=== PATIENT | male | born 1955 | race African-American/Black ===

== ENCOUNTER 2022-04-29 09:37 | Emergency (ER) | payer MEDICARE, SELFPAY ==
--- NOTE | ~2022-04-29 | XR_ITS ---
EXAMINATION: XR chest 2V DATE: 04/29/2022 10:42 INDICATION: Shortness of breath. TECHNIQUE: Frontal and lateral views of the chest were obtained. COMPARISON: None. FINDINGS: The chest demonstrates clear lungs without pneumonia, pleural effusion, or pneumothorax. Th e heart size is normal. IMPRESSION: 1. No acute cardiopulmonary disease. Reviewed, dictated and finalized at location A.
[2022-04-29 09:47] VITALS: BP 135/60; PULSE 63; RESP 18; TEMP 36.6; O2SAT 100
--- NOTE | 2022-04-29 09:53 | ECG_ITS ---
Measurements Intervals [place] Rate: 59 P: 61 IN: 176 QRS: -20 QRSD: 92 T: 16 QT: 436 QTc: 432 Interpretive Statements SINUS BRADYCARDIA VOLTAGE CRITERIA FOR LVH [MEETS CRITERIA IN ONE OF: R(aVL), S(V1), R(V5), R(V5/V6)+S(V1)] NO PREVIOUS ECG AVAILABLE FOR COMPARISON Electronically Signed On 04-29-2022 19:58:16 CDT by Sherlyn Gaines M.D.
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
[2022-04-29 10:37] VITALS: O2SAT 100
[2022-04-29] MEDS: ALBUTEROL SULFATE NEB 2.5 MG/3 ML INH INHALATION (10:44)
[2022-04-29 10:52] LABS: Basophils Percent Auto 0.2 % (0.2-1.2); Eosinophils Absolute Auto 0.1 K/mm3 (0-0.3); Eosinophils Percent Auto 1.8 % (0-4.4); Hematocrit 37.3 % (42.0-52.0); Hemoglobin 11.6 g/dL (14.0-18.0); Immature Granulocyte Absolute 0.02 K/mm3 (0.00-0.031); Immature Granulocyte Percent A 0.4 % (0-0.5); Lymphocytes Percent Auto 26.9 % (18.3-44.2); Mean Corpuscular HGB Conc 31.1 g/dl (32-36); Mean Corpuscular Hemoglobin 28.1 pg (26-34); Mean Corpuscular Volume 90.3 fl (80-100); Mean Platelet Volume 10.7 fl (7.4-10.4); Monocytes Absolute Auto 0.5 K/mm3 (0.1-0.6); Neutrophils Absolute Auto 2.7 K/mm3 (1.3-6.7); Neutrophils Percent Auto 59.7 % (45.5-73.1); Platelet Count Result 149 k/mm3 (150-375); Red Blood Count 4.13 M/mm3 (4.6-6.20); Red Cell Distribution Width 15.6 % (11.5-14.5); White Blood Count 4.5 K/mm3 (4.5-10.0)
[2022-04-29 11:04] LABS: Alanine Aminotransferase 25 U/L (6-50); Albumin Level 3.9 g/dL (3.5-5.1); Alkaline Phosphatase 76 U/L (38-126); Anion Gap 9 mmol/L (8-16); Aspartate Amino Transferase 26 U/L (17-59); Bilirubin,Total 0.3 mg/dL (0.2-1.3); Blood Urea Nitrogen 18 mg/dL (9-20); Carbon Dioxide 26 mmol/L (22-30); Chloride 105 mmol/L (98-107); Estimated CRCL calculation 73 ml/min; Estimated Glomerular Filt Rate > 60; Glucose 103 mg/dL (65-110); Potassium 3.9 mmol/L (3.4-5.0); Sodium 140 mmol/L (137-145)
[2022-04-29 11:48] VITALS: BP 116/81; PULSE 56; RESP 18; O2SAT 100
[2022-04-29 12:00] LABS: Base Excess ABG 2.7 mEq/l (+/-2.0); HCO3 ABG 25.8 mEq/l (22.0-26.0); Oxygen Saturation ABG 98.8 % (95.0-100.0); PO2 ABG 127.8 mmHg (80.0-100.0); Total Hemoglobin 12.8 g/dL (12.0-18.0); pH ABG 7.486 (7.350-7.450)
[2022-04-29 12:01] LABS: Carboxyhemoglobin 8.8 % THb (0-2.0); Methemoglobin ABG 0.2 %THb (0-1.5); Oxygen Content ABG 16.3 %vol (16.0-22.0); Oxyhemoglobin 89.3 % THb (90.0-100.0); PO2 FiO2 Ratio Arterial Blood 6.09 %; Reduced Hemoglobin 1.7 %THb (0-5.0)
== END 2022-04-29 13:32 | disposition home or self-care (01) ==
PROVIDERS: Physician Assistant; Emergency Provider Emergency Medicine; PCP Internal Medicine
DX: T59.811A Toxic effect of smoke, accidental (unintentional), initial encounter (principal); R00.1 Bradycardia, unspecified
CPT/HCPCS: 36415; 36600; 71046; 80053; 82375; 82803; 82805; 83050; 85025; 93005; 94640; 99283

== ENCOUNTER 2022-05-07 10:34 | Emergency (ER) | payer MEDICARE, SELFPAY ==
[2022-05-07 10:54] VITALS: BP 123/57; PULSE 72; RESP 12; TEMP 36.7; O2SAT 100
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
[2022-05-07 11:54] LABS: Appearance Urine Slightly Cloudy (Clear); Bilirubin Urine Negative (Negative); Color Urine Yellow (Yellow); Glucose Urine UA Negative (Negative); Ketones Urine Negative (Negative); Leukocyte Esterase Ur Negative LEU/UL (Negative); Nitrate Urine Negative (Negative); Protein Urine Negative (Negative); Specific Grav Ur 1.025 (1.001-1.035); Urobilinogen Urine 0.2 mg/dL (<2.0); pH Urine 5.5 (5.0-9.0)
[2022-05-07 12:03] LABS: Add Urine Microscopic? YES; Blood Urine Trace-Intact (Negative)
[2022-05-07 12:05] LABS: Mucus Urine Few /lpf; Squamous Epithelial Cell Urine Few /hpf (Few)
[2022-05-07 12:06] LABS: RBC Urine 0-2 /hpf (0-2); WBC Urine 0-3 /hpf (0-3)
== END 2022-05-07 12:19 | disposition home or self-care (01) ==
PROVIDERS: Emergency Provider Nurse Practitioner Family; PCP Internal Medicine
DX: Z03.89 Encounter for observation for other suspected diseases and conditions ruled out (principal)
CPT/HCPCS: 81001; 99283